=== PATIENT | female | born 1945 | race Caucasian/White ===

== ENCOUNTER 2017-10-26 15:23 | Emergency (ER) | payer MEDICARE | END 2017-10-26 16:05 | disposition home or self-care (01) | LOC: ERS 15:23 | DX: G51.0 Bell's palsy (principal); F17.210 Nicotine dependence, cigarettes, uncomplicated | CPT/HCPCS: 94760 ==

== ENCOUNTER 2017-12-11 15:23 | Outpatient (CLI) | payer MEDICARE | END 2017-12-11 15:24 | disposition home or self-care (01) | LOC: DTY/OP 15:23 | PROVIDERS: ATTEND Family Medicine | DX: E11.9 Type 2 diabetes mellitus without complications (principal) | CPT/HCPCS: 97802 ==

== ENCOUNTER → 2017-12-18 | Day surgery (SDC) | payer MEDICARE ==
--- NOTE | 2017-12-18 13:30 | CT ---
CT CHEST WITHOUT CONTRAST: INDICATIONS: A 30 year history of smoking. TECHNIQUE: Multiple axial tomograms obtained through the chest without contrast, following a low dose screening protocol. FINDINGS: The lungs show no evidence of infiltrate or effusion. There is a 4 mm nodule in the right middle lobe. There are three or four tiny nodules in the superior left lower lobe, peripherally, measuring in the 3 mm range. There is also a 3 mm nodule in the right lung base, peripherally, best seen on coronal i maging. The mediastinum is unremarkable. No adenopathy. Images through the upper abdomen are unremarkable. IMPRESSION: Scattered pulmonary nodules, less than 6 mm. This would indicate a lung-RADS 2. Recommend annual lo w dose screening chest CT. POS: [facility]
== END ==
LOC: BICMAMMO 10:36 → CT 10:37
PROVIDERS: ATTEND Family Medicine
DX: Z12.2 Encounter for screening for malignant neoplasm of respiratory organs (principal); Z00.00 Encounter for general adult medical examination without abnormal findings; F17.210 Nicotine dependence, cigarettes, uncomplicated
CPT/HCPCS: 77063; 77067; G0297

== ENCOUNTER 2018-12-19 11:44 | Outpatient (CLI) | payer MEDICARE ==
--- NOTE | 2018-12-19 13:20 | MMO ---
Bilateral MAMMO Bilat Screen [facility]. CLINICAL HISTORY: Patient is 73 years old and is seen for screening. The patient has the following family history of breast cancer: mother. The patient has a history of cervical cancer at age 57. VIEWS: The views performed were: bilateral craniocaudal with tomosynthesis and bilateral mediolateral oblique with tomosynthesis. FILMS COMPARED: The present examination has been compared to prior imaging studies performed at [facility] on 09/06/2015, at [facility] on 12/18/2017, and at [facility] on 11/19/2016. MAMMOGRAM FINDINGS: There are scattered fibroglandular densities. There are benign appearing calcifications seen in both breasts. There are no suspicious masses, suspicious calcifications, or new areas of architectural distortion. IMPRESSION: THERE IS NO MAMMOGRAPHIC EVIDENCE OF MALIGNANCY. A ROUTINE FOLLOW-UP MAMMOGRAM IN 1 YEAR IS RECOMMENDED. THE RESULTS OF THIS EXAM WERE SENT TO THE PATIENT. ACR BI-RADS Category 2 - Benign finding MAMMOGRAPHY NOTE: 1. A negative mammogram report should not delay a biopsy if a dominant of clinically suspicious mass is present. 2. Approximately 10% to 15% of breast cancers are not detected by mammography. 3. Adenosis and dense breasts may obscure an underlying neoplasm. Reported by: ISIDRA HEAD MD Electonically Signed: [id number]
== END 2018-12-19 11:45 | disposition home or self-care (01) ==
LOC: BICMAMMO 11:44
PROVIDERS: ATTEND Family Medicine
DX: Z12.31 Encounter for screening mammogram for malignant neoplasm of breast (principal); Z80.3 Family history of malignant neoplasm of breast
CPT/HCPCS: 77063; 77067